=== PATIENT | female | born 1945 | race Caucasian/White ===

== ENCOUNTER 2016-07-27 03:54 | Inpatient (IN) | payer MEDICARE, OTHER ==
[~2016-07-27 03:54] MED LIST: ALDACTONE25 M1 PO; ALDACTONE25 MG PO; ALEVE220 M1 PO; AMLODIPINE-BEN1 EA11 PO; ANORO ELLIPTA1 EAC1 INH; ARTIFICIAL TEA EACH EYE; ASPIR 8181 M1 PO; ASTEPRO205.5 MCG/; ATORVASTATIN CA20 M1 PO; CALCIUM + D3 E1 EAC2; CATAPRES0.1 M1 PO; DUONEB 2.5-0.5MG3 M1 INH; ELIQUIS5 M1 PO; FELODIPINE ER5 M2; FISH OIL 1,2001 EAC5 PO; FLECAINIDE ACET50 M1 PO; FLONASE16 G2; FLUTICASONE PRO16 GM; GAS RELIEF125 M5 CH; GINKGO BILOBA; GLUCOPHAGE500 MG PO; GLUCOPHAGE850 M1 PO; GLUCOSAMINE &1 EAC1; IRON325 M3 PO; LASIX20 M1 PO; LUTEIN-ZEAXANT1 EAC1 PO; METOPROLOL TART50 M2 PO; MOBIC7.5 M2; MULTIVITAMINS1 EAC6 PO; PRAVACHOL20 MG PO; PROAIR HFA8.5 GM INH; QUINAPRIL40 MG PO; QUINAPRIL5 MG PO; RESTASIS0.4 ML/EA BOTH EYES; SUPER B COMPLE150 M1; VENTOLIN HFA18 G2 INH; VITAMIN B-121000 MC1 PO; VITAMIN C250 MG/TAB; VITAMIN D31000 UNI3; VITAMIN E400 UNI4; ZANTAC150 M1 PO; [UNRECOGNIZED DRUG - REMARK]; [UNRECOGNIZED DRUG - REMARK]
[2016-07-27 04:15] LABS: INR 1.5 INR (0.9-1.1); PROTHROMBIN TIME 18.2 SECONDS (9.0-13.6)
[2016-07-27 04:17] LABS: BASO % 0.1 % (0-2); EOS % 3.5 % (0-7); EOSINOPHIL ABSOLUTE COUNT 0.3 tho/cmm (0.0-0.7); HCT-HEMATOCRIT 36.7 % (34.0-49.0); HGB-HEMOGLOBIN 11.8 gm/dl (12.0-15.5); IMMATURE GRANULOCYTES ABSOLUTE 0.01 tho/cmm (0-0.03); IMMATURE GRANULOCYTES PERCENT 0.1 % (0-0.3); LYMPH ABSOLUTE COUNT 3.5 tho/cmm (0.8-4.5); MCH (MEAN CORPUSCULAR HGB) 28.4 pg (28.0-32.0); MCHC MEAN CORPUSCULAR HGB CONC 32.2 % (32.0-36.0); MCV (MEAN CELL VOLUME) 88.4 fl (82.0-96.0); MEAN PLATELET VOLUME 9.4 cmc (9.4-12.4); MONO % 7.4 % (0-12); MONOCYTE ABSOLUTE COUNT 0.7 tho/cmm (0.0-1.2); NEUTROPHIL ABSOLUTE COUNT 5.1 tho/cmm (1.6-8.0); NEUTROPHIL-AUTOMATED 5.1 tho/cmm (1.6-8.0); NEUTROPHILS % 52.9 % (40-80); PLATELET COUNT 233 tho/cmm (150-450); RED BLOOD COUNT 4.15 mil/cmm (4.00-5.20); RED CELL DISTRIBUTION WIDTH 13.3 % (12.4-16.4); WHITE BLOOD COUNT 9.7 tho/cmm (4.0-10.0)
[2016-07-27 04:30] LABS: ABG CO2 ARTERIAL 25 mmol/L (21-27); ARTERIAL BLD GAS O2 SATURATION 100 % (95-98); ARTERIAL BLOOD GAS PCO2 53 mmHg (32-45); ARTERIAL PO2 273 mmHg (70-100); BICARBONATE 23 mmol/L (21-28); BLOOD GAS BASE EXCESS -4 mM/L (-/+3); PH 7.27 Units (7.35-7.45)
[2016-07-27 04:32] LABS: ALB/GLOB RATIO 0.9 (0.8-2.0); ALBUMIN 3.4 g/dl (3.5-5.0); ALCOHOL (ETOH) <10 mg/dl (<10); ALKALINE PHOSPHATASE 41 U/L (33-138); ALT/SGPT 21 U/L (12-78); ANION GAP 17 mmol/L (0-20); AST/SGOT 11 U/L (10-40); BILIRUBIN,TOTAL 0.3 mg/dl (0-1.5); BLOOD UREA NITROGEN 17 mg/dl (6-24); CALCIUM 8.7 mg/dl (8.5-10.5); CARBON DIOXIDE-VENOUS 24 mmol/L (22-32); CHLORIDE 100 mmol/l (96-110); CREATININE 1.54 mg/dl (0.50-1.10); GLUCOSE 153 mg/dL (70-110); MAGNESIUM 1.5 mg/dl (1.3-2.6); POTASSIUM 3.9 mmol/L (3.7-5.1); SODIUM 137 mmol/L (135-145); eGFR VALUE FOR BLACK 39 mL/Min
[2016-07-27 04:38] LABS: TSH-THYROID STIMULATING HORM. 3.51 uIU/ml (0.40-3.80)
[2016-07-27 04:49] LABS: ACETAMINOPHEN LEVEL <10 ug/ml (10-30); SALICYLATE <2.8 mg/dl (2.8-20)
[2016-07-27 05:11] LABS: URINE BILIRUBIN NEGATIVE (NEG); URINE BLOOD SMALL (NEG); URINE GLUCOSE (UA) NEGATIVE (NEG); URINE KETONE NEGATIVE (NEG); URINE LEUKOCYTE ESTERASE NEGATIVE (NEG); URINE NITRITE NEGATIVE (NEG); URINE PROTEIN SMALL (NEG)
[2016-07-27 05:20] LABS: URINE APPEARANCE CLEAR; URINE COLOR YELLOW; URINE RBC 0 /[HPF] (0-5); URINE WBC 0 /[HPF] (0-5)
[2016-07-27] MEDS ORDERED: LEXAPRO5 M1 PO (05:51)
[2016-07-27] MEDS ORDERED: VITAMIN E400 UNI4 PO (05:58)
[2016-07-27] MEDS ORDERED: VITAMIN C500 M3 PO (05:58)
[2016-07-27 08:30] LABS: PHOSPHOROUS 4.8 mg/dl (2.5-4.9)
[2016-07-27 08:42] LABS: C-REACTIVE PROTEIN <0.3 mg/dl (0-0.9); PROCALCITONIN <0.05 ng/ml (0.05-0.09)
[2016-07-27 13:02] LABS: CKMB 0.8 ng/ml (<3.6)
[2016-07-28 05:23] LABS: ARTERIAL BLD GAS O2 SATURATION 99 % (95-98); ARTERIAL BLOOD GAS PCO2 48 mmHg (32-45); BLOOD GAS BASE EXCESS 3 mM/L (-/+3)
[2016-07-28 05:29] LABS: BASO % 0.1 % (0-2); EOS % 3.5 % (0-7); EOSINOPHIL ABSOLUTE COUNT 0.3 tho/cmm (0.0-0.7); HCT-HEMATOCRIT 32.1 % (34.0-49.0); HGB-HEMOGLOBIN 10.3 gm/dl (12.0-15.5); IMMATURE GRANULOCYTES ABSOLUTE 0.01 tho/cmm (0-0.03); IMMATURE GRANULOCYTES PERCENT 0.1 % (0-0.3); LYMPH % 20.1 % (20-45); LYMPH ABSOLUTE COUNT 1.6 tho/cmm (0.8-4.5); MCH (MEAN CORPUSCULAR HGB) 28.1 pg (28.0-32.0); MCHC MEAN CORPUSCULAR HGB CONC 32.1 % (32.0-36.0); MCV (MEAN CELL VOLUME) 87.5 fl (82.0-96.0); MEAN PLATELET VOLUME 9.3 cmc (9.4-12.4); MONO % 9.8 % (0-12); MONOCYTE ABSOLUTE COUNT 0.8 tho/cmm (0.0-1.2); NEUTROPHIL ABSOLUTE COUNT 5.2 tho/cmm (1.6-8.0); NEUTROPHIL-AUTOMATED 5.2 tho/cmm (1.6-8.0); NEUTROPHILS % 66.4 % (40-80); PLATELET COUNT 208 tho/cmm (150-450); RED BLOOD COUNT 3.67 mil/cmm (4.00-5.20); RED CELL DISTRIBUTION WIDTH 13.6 % (12.4-16.4); WHITE BLOOD COUNT 7.8 tho/cmm (4.0-10.0)
[2016-07-28 05:34] LABS: ANION GAP 12 mmol/L (0-20); BLOOD UREA NITROGEN 15 mg/dl (6-24); CALCIUM 8.6 mg/dl (8.5-10.5); CARBON DIOXIDE-VENOUS 30 mmol/L (22-32); CHLORIDE 103 mmol/l (96-110); CREATININE 1.15 mg/dl (0.50-1.10); GLUCOSE 100 mg/dL (70-110); POTASSIUM 3.9 mmol/L (3.7-5.1); SODIUM 141 mmol/L (135-145); eGFR VALUE FOR BLACK 55 mL/Min
[2016-07-28 06:49] LABS: ABG CO2 ARTERIAL 30 mmol/L (21-27); ARTERIAL PO2 106 mmHg (70-100); BICARBONATE 28 mmol/L (21-28); PH 7.38 Units (7.35-7.45)
[2016-07-29 05:24] LABS: ABG CO2 ARTERIAL 27 mmol/L (21-27); ARTERIAL BLD GAS O2 SATURATION 96 % (95-98); ARTERIAL BLOOD GAS PCO2 46 mmHg (32-45); BICARBONATE 25 mmol/L (21-28); BLOOD GAS BASE EXCESS 0 mM/L (-/+3); PH 7.36 Units (7.35-7.45)
[2016-07-29 05:25] LABS: ARTERIAL PO2 78 mmHg (70-100)
[2016-12-17] MEDS ORDERED: CHLOR-TRIMETON4 M1 PO (15:20)
[2016-12-17] MEDS ORDERED: IPRAT-ALBUT 0.5-3 ML AERO NEB (15:21)
[2016-12-17] MEDS ORDERED: TESSALON PERLE100 M1 PO (15:25)
[2016-12-17] MEDS ORDERED: AZELASTINE205.5 MCG/ (15:26)
[2017-01-07] MEDS ORDERED: FLONASE ALLERG9.9 ML (09:46)
[2017-01-07] MEDS ORDERED: CALCIUM PO (09:49)
[2017-01-07] MEDS ORDERED: OXYGEN PO (09:52)
[2017-01-09] MEDS ORDERED: TYLENOL EXTRA500 M1 PO (15:36)
== END 2016-07-30 13:30 | DRG 189 ==
LOC: EDMED 03:54 → EMR2 07:46 → CCU 10:38 → PCUA 18:05
PROVIDERS: Emergency Medicine; Internal Medicine Critical Care Medicine; Internal Medicine Pulmonary Disease; Psychiatry & Neurology Neurology; Registered Nurse; ADMIT Hospitalist
PROC: 02HV33Z Insertion of Infusion Device into Superior Vena Cava, Percutaneous Approach (ICD-10-PCS; principal; 2016-07-27)
DX: J96.00 Acute respiratory failure, unspecified whether with hypoxia or hypercapnia (principal); N17.9 Acute kidney failure, unspecified; E87.2 Acidosis; E66.01 Morbid (severe) obesity due to excess calories; E11.9 Type 2 diabetes mellitus without complications; E78.5 Hyperlipidemia, unspecified; I10 Essential (primary) hypertension; I48.0 Paroxysmal atrial fibrillation
CPT/HCPCS: A9540; A9558; C1751; G0480; J2405; J2543; J3370; J7030; P9612